=== PATIENT | male | born 1970 | race African-American/Black ===

== ENCOUNTER 2022-03-17 19:32 | Emergency (ER) | payer OTHER ==
[~2022-03-17] VITALS: Ht 175.3 cm; Wt 115.0 kg
[2022-03-17 20:32] VITALS: BP 124/62
[2022-03-17] MEDS ORDERED: SODIUM CHLORIDE 0.9% 1,000 ML IV ONE (21:00)
[2022-03-17] MEDS ORDERED: ATOR10TA84 PO (21:01)
[2022-03-17] MEDS ORDERED: ACYC-138 PO (21:01)
[2022-03-17] MEDS ORDERED: PENI250T3 PO (21:01)
[2022-03-17] MEDS ORDERED: LOSA-381 PO (21:01)
[2022-03-17] MEDS ORDERED: ASPI-1450 PO (21:01)
[2022-03-17 21:25] LABS: ANION GAP 16 mmol/L (8-16); CALCIUM, TOTAL 9.2 mg/dL (8.8-10.5); CARBON DIOXIDE 23 mmol/L (22-29); CHLORIDE 100 mmol/L (98-107); GLUCOSE,RANDOM 94 mg/dL (70-110); POTASSIUM 3.5 mmol/L (3.5-5.1); SODIUM SERUM 139 mmol/L (136-145); UREA NITROGEN, BLOOD 29 mg/dL (7-18)
[2022-03-17 21:27] LABS: GLOMERULAR FILTR. RATE CALC > 60 mL/min (>60)
[2022-03-17 21:30] LABS: ALANINE AMINOTRANSFERASE 30 U/L (12-78); ALBUMIN 4.3 g/dL (3.4-5.0); ALKALINE PHOSPHATASE 69 U/L (46-116); ASPARTATE AMINOTRANSFERASE 24 U/L (15-37); BILIRUBIN,TOTAL 0.8 mg/dL (0.1-1.0); LIPASE 189 U/L (73-393); TOTAL PROTEIN, SERUM 8.5 g/dL (6.4-8.2)
[2022-03-17 21:33] LABS: BASOPHILS % (AUTO) 0.4 % (0.0-2.0); HEMOGLOBIN 14.8 g/dL (13.5-17.5); LYMPHOCYTES # (AUTO) 1.8 K/uL (1.0-4.8); LYMPHOCYTES % (AUTO) 20.9 % (22.0-44.0); MEAN CORPUSCULAR HEMOGLOBIN 28.3 pg (26.0-34.0); MEAN CORPUSCULAR HGB CONC 32.9 G/dL (31.0-37.0); MEAN CORPUSCULAR VOLUME 86 fL (80-100); MONOCYTES # (AUTO) 0.5 K/uL (0.1-1.0); MONOCYTES % (AUTO) 5.4 % (2.0-9.0); NEUTROPHILS # (AUTO) 6.1 K/uL (1.8-7.7); NEUTROPHILS % (AUTO) 71.3 % (40.0-70.0); RED BLOOD CELL COUNT(AUTO) 5.22 MIL/uL (4.50-5.90)
[2022-03-17 21:47] LABS: PLATELET COUNT (AUTO) 241 K/uL (150-450)
== END 2022-03-17 22:45 | disposition home or self-care (01) ==
LOC: EMS 19:34
DX: E86.0 Dehydration (principal); K59.00 Constipation, unspecified
CPT/HCPCS: 74022; 80053; 82962; 83690; 84484; 85025; 93005; 96360; 99285; J7030; 36415-L1; 36415-TC